=== PATIENT | male | born 1965 | race Caucasian/White ===

== ENCOUNTER 2024-01-17 21:59 | Outpatient (REF) | payer BC, SELFPAY ==
[2024-01-17 18:21] LABS: BUN 15 mg/dL (7-18); CREATININE 0.9 mg/dL (0.70-1.30); Calcium 9.6 mg/dL (8.5-10.1); Calculated LDL 62 mg/dL (<100); Chloride 104 mmol/L (98-107); Cholesterol 148 mg/dL (<200); Estimated GFR 100.24 (mL/min/1.73m2); Glucose 84 mg/dL (74-106); HDL Cholesterol 63 mg/dL (40-60); Potassium 4.6 mmol/L (3.5-5.1); Sodium 144 mmol/L (136-145); Triglyceride 115 mg/dL (<150)
[2024-01-19 15:46] LABS: Hepatitis C Ab w Rflx HCV PCR Negative (Negative)
[2024-01-20 10:09] LABS: Lipoprotein (a) 39 nmol/L (<75)
== END 2024-01-17 22:00 | disposition home or self-care (01) ==
LOC: NCHCN 21:59
PROVIDERS: PCP Family Medicine; Visit Provider Family Medicine
DX: I10 Essential (primary) hypertension (principal); Z00.00 Encounter for general adult medical examination without abnormal findings; E78.00 Pure hypercholesterolemia, unspecified
CPT/HCPCS: 80048; 80061; 83695; 86803

== ENCOUNTER 2024-06-12 17:33 | Outpatient (REF) | payer BC, SELFPAY ==
--- NOTE | 2024-06-12 12:00 | SKI_PTH ---
PATIENT: Antony Peralta LOC: [facility] U#:[id number] AGE/SX: 59/M ROOM: RE06/12/[address]: Lauren Chairez : 1965 BED: DIS: 06/12/2024 SPEC #: [id number] RECD: 06/12/24 17:35 STATUS: DESHAWN REAlexandra #: [id number] FAUSTO: 06/12/24 12:[address]: Lauren Chairez DEPT: Surgical Specimen RECD BY: Cortney Phillip Tissues: 1 - SKIN BIOPSY(SHAVE/PUNCH) Procedures: SKIN LEVEL 4 Comments: [id number]
== END 2024-06-12 17:34 | disposition home or self-care (01) ==
LOC: NCHCN 17:33
PROVIDERS: PCP Family Medicine; Visit Provider Family Medicine
DX: D22.5 Melanocytic nevi of trunk (principal)
CPT/HCPCS: 88305